=== PATIENT | female | born 1985 | race Caucasian/White ===

== ENCOUNTER 2016-05-27 05:40 | Day surgery (SDC) | payer MEDICAID, OTHER ==
[2016-05-25 12:30] LABS: APPEARANCE,URINE SLIGHTLY-CLOUDY; BILIRUBIN,URINE NEGATIVE (NEGATIVE); GLUCOSE, URINE NEGATIVE (NEGATIVE); KETONES,URINE NEGATIVE (NEGATIVE); LEUKOCYTE ESTERASE,URINE TRACE (NEGATIVE); NITRITE,URINE NEGATIVE (NEGATIVE); PROTEIN,URINE NEGATIVE (NEGATIVE); URINE SPECIFIC GRAVITY 1.016; UROBILINOGEN,URINE NEGATIVE mg/dL (<2.0)
[2016-05-25 12:32] LABS: HEMATOCRIT 31.5 % (36.0-47.0); HGB HCT DIFFERENCE -1.5; MEAN CORPUSCULAR HEMOGLOBIN 22.8 pg (27.0-33.4); MEAN CORPUSCULAR HGB CONC 31.8 g/dL (32.0-36.0); MEAN CORPUSCULAR VOLUME 72 fl (80-97); RED BLOOD COUNT 4.39 10^6/uL (3.72-5.28); RED CELL DISTRIBUTION WIDTH 18.1 % (11.5-14.0); WHITE BLOOD COUNT 4.3 10^3/uL (4.0-10.5)
[2016-05-25 12:55] LABS: ALANINE AMINOTRANSFERASE 28 U/L (9-52); ALBUMIN 4.1 g/dL (3.5-5.0); ALKALINE PHOSPHATASE 61 U/L (38-126); ANION GAP 9 (5-19); ASPARTATE AMINO TRANSFERASE 22 U/L (14-36); BILIRUBIN,TOTAL 0.6 mg/dL (0.2-1.3); BLOOD UREA NITROGEN 12 mg/dL (7-20); CARBON DIOXIDE 28 mmol/L (22-30); CHLORIDE 104 mmol/L (98-107); CREATININE RESULT 0.72 mg/dL (0.52-1.25); GLUCOSE 88 mg/dL (75-110); POTASSIUM 4.4 mmol/L (3.6-5.0); SODIUM 140.6 mmol/L (137-145); TOTAL PROTEIN 7.6 g/dL (6.3-8.2)
[~2016-05-27 05:40] MED LIST: CEFAZOLIN SODIUM 1 GM in DEXTROSE 5%-WATER 50 ML IV PRN; LACTATED RINGERS 1000 ML IV PRN; LIDOCAINE 0.5% INJ-PF (5 MG/ML) 50 ML SDV SUBCUT PRN
[2016-05-27] MEDS ORDERED: HYDROMORPHONE HCL INJ/PF 2 MG/ML AMPULE ONE ×2 (07:15)
[2016-05-27] MEDS ORDERED: FENTANYL CITRATE INJ/PF 250 MCG/5 ML AMPULE ONE (07:15)
[2016-05-27] MEDS ORDERED: MIDAZOLAM 2 MG/2 ML INJ ONE (07:16)
[2016-05-27] MEDS ORDERED: EPHEDRINE SULFATE INJ 50 MG/1 ML AMPULE ONE (07:16)
[2016-05-27] MEDS ORDERED: ACETAMINOPHEN 100 ML IV ONE ×2 (07:16→16:00)
[2016-05-27] MEDS ORDERED: PROPOFOL INJ 200 MG/20 ML VIAL IV ONE (07:16)
[2016-05-27] MEDS ORDERED: SCOPOLAMINE HYDROBROMIDE 1.5 MG PATCH.TD72 ONE (07:25)
[2016-05-27] MEDS ORDERED: DIPHENHYDRAMINE HCL 50 MG/ML VIAL IV PRN (08:39)
[2016-05-27] MEDS ORDERED: MEPERIDINE HCL/PF INJ 25 MG/1 ML DISP.SYRIN IV PRN (08:39)
[2016-05-27] MEDS ORDERED: PROMETHAZINE HCL INJ 25 MG/1 ML VIAL IV PRN (08:39)
[2016-05-27] MEDS ORDERED: FENTANYL CITRATE INJ/PF 100 MCG/2 ML AMPUL IV PRN ×3 (08:39)
[2016-05-27] MEDS ORDERED: BUPIVACAINE HCL 0.25 % INJ/PF (2.5 MG/1 ML) 30 ML VIAL ONE (09:51)
[2016-05-27] MEDS ORDERED: IBUPROFEN 800 MG TABLET PO PRN (10:51)
[2016-05-27] MEDS ORDERED: MORPHINE SULFATE 10 MG/ML INJ IV PRN (10:51)
--- NOTE | 2016-05-27 11:18 | OPERATIVE REPORT E ---
Operative Report NAME: BARBIE TORRES : 1985 AGE: 31Y DATE OF SURGERY: 05/27/2016 ROOM: PREOPERATIVE DIAGNOSES: 1. Abnormal uterine bleeding. 2. Endometriosis. 3. Chronic pelvic pain. 4. Anemia. POSTOPERATIVE DIAGNOSES: 1. Abnormal uterine bleeding. 2. Endometriosis. 3. Chronic pelvic pain. 4. Anemia. PROCEDURE: Robotic assisted total laparoscopic hysterectomy with bilateral salpingectomy, a right ovarian cystectomy, foreign body removal, and fulguration of endometriosis. SURGEON: ZEB VARGAS M.D. ANESTHESIA: Dr. Mckeon with general. ESTIMATED BLOOD LOSS: 150 mL. SPECIMENS REMOVED: Uterus, cervix, bilateral fallopian tubes, right ovarian chocolate cyst, and foreign body removal. FINDINGS: Approximately a 12-week sized uterus with small amounts of endometriosis in the posterior cul-de-sac just beneath the uterosacral ligaments concentrated on the right uterosacral ligament. Several surgical clips were noted from the patient's previous appendectomy that looked like a surgical stapler had been used. The left Filshie clip that had been placed at her tubal had been dislodged and was imbedded just lateral to her uterosacral ligament just beneath the cervix. The right ovary had a small hemorrhagic chocolate cyst on it. The left ovary was very normal in appearance and the fallopian tubes both were normal in appearance with the right one having an intact Filshie clip. The left, again the Filshie clip had fallen off but it looked like her tube could have been patent but I am not sure. PROCEDURE IN DETAIL: The patient was taken to the operating room and prepared and draped in a normal sterile fashion in the dorsal lithotomy position. Under sterile conditions, a Bates catheter was placed to gravity without difficulty. A sterile speculum was then placed into the vagina and the cervix was grasped and prepped with Betadine. It was grasped on the anterior lip of the cervix with a single tooth tenaculum. The cervix was then penetrated with a uterine sound and the uterus sounded to approximately 6 cm. The cervix was then dilated to accommodate a medium VCare uterine manipulator, which was placed without difficulty. Gloves were changed and attention was then turned to the upper portion of the case, where an umbilical skin incision was made following patient's previous laparoscopic surgery scar. This incision was expanded to accommodate a GelPOINT. The peritoneal cavity was entered sharply using a cutdown method without difficulty. The GelPOINT was then placed and the AirSeal and camera port were placed through the GelPOINT. The peritoneal cavity was then insufflated with approximately 2 L of CO2 gas and the robotic camera was introduced to survey the peritoneal cavity with the above findings noted. Under direct visualization, two 5 mm ports were placed approximately 10 cm on either side of the umbilicus to accommodate the robotic arms. The robot was then docked and the monopolar scissors and the vessel EndoSealer was placed. Beginning with the removal of the foreign objects, the Filshie clip that was noted imbedded just lateral to the uterosacral ligament was carefully teased out using the monopolar scissors and was removed through the assistance port without difficulty. We continue this method with removal of the other surgical ishan that were noted imbedded throughout the posterior cul-de-sac. The endometriosis that was noted was all fulgurated well with the monopolar scissors. The anterior cul-de-sac was inspected and found to be clean of any debris or endometriosis. The rest of the uterosacral ligaments were inspected carefully and found to have no further endometriosis on them other than the lesions that we had already fulgurated. Beginning with the right fallopian tube, I then removed the right fallopian tube using the monopolar scissors and transecting at the fundus using the EndoSealer. The hemorrhagic cyst was grasped and this was transected from the ovary and removed using the monopolar scissors. The ovary was then inspected and found to be hemostatic. The utero-ovarian ligament was then sealed with the vessel sealer and continued transection of the uterine arteries through the round ligament using the vessel sealer as well until we reached the level of the internal cervical os where the bladder flap was begun using the monopolar scissors. We then turned our attention to the left adnexa and using a similar fashion, the monopolar scissors were used to remove the left fallopian tube which again had an appearance of possibly being patent but this was not tested. The fallopian tube was transected from the uterine fundus using the vessel sealer. Continued to use the vessel sealer to transect the utero-ovarian ligament to drop the ovary away and the uterine arteries were then transected and sealed using the vessel sealer again down to the level of the internal cervical os where the bladder flap was completed using the monopolar scissors and the bladder flap was dissected well away from the cervix. The rest of the uterine arteries were completely sealed and transected until the VCare could be easily located through the mucosa. The colpotomy was then begun on the posterior side using the monopolar scissors and carried around circumferentially until the specimen was completely freed. The VCare was then removed and the uterus and cervix were removed through the vagina without difficulty. The instruments were then replaced with a [employer] Needle Supervisor [employer]ly[employer] Tinning and a ProGrasp. The V-Loc suture was introduced through the accessory port and this was used to close the vaginal cuff without difficulty. The ureters were inspected throughout the case and there were no signs of hydroureter or lack of peristalsing during case at all. Once the vaginal cuff was closed, we noticed that there was a small amount of oozing, so we reintroduced the monopolar scissors and used this to coagulate the areas that were bleeding slightly until hemostasis was obtained. The ureters were then once again reinspected and found to be peristalsing normally with no signs of hydroureter. The robot was undocked and the instruments were removed under direct visualization. The GelPOINT was removed. The fascia was located underneath the subcutaneous layer and it was closed in a running fashion using 0 Vicryl. The subcutaneous layer was then closed with plain catgut and then all 3 skin sites were closed using 4-0 Vicryl. Patient tolerated the procedure well. Sponge, lap, and needle counts were correct x2. The patient's incisions were injected with plain Marcaine for further pain control. The patient tolerated the procedure well and she was taken to PACU in stable condition. DICTATING PHYSICIAN: ZEB VARGAS M.D. [id number] PHY#: [id number] ID: [id number] JOB#: [id number] ACCT: [id number] cc:ZEB VARGAS M.D. >
[2016-05-27] MEDS ORDERED: ONDANSETRON HCL INJ/PF 4 MG/2 ML SDV IV ONE (12:10)
[2016-05-27] MEDS ORDERED: ONDANSETRON HCL INJ/PF 4 MG/2 ML SDV ONE ×2 (12:10→12:39)
[2016-05-27] MEDS ORDERED: KETOROLAC TROMETHAMINE INJ/PF 30 MG/1 ML SDV ONE (12:11)
[2016-05-27] MEDS ORDERED: GLYCOPYRROLATE INJ 0.4 MG/2 ML VIAL ONE (12:39)
[2016-05-27] MEDS ORDERED: LIDOCAINE 2% INJ-PF (20 MG/ML) 10 ML AMPUL ONE (12:39)
[2016-05-27] MEDS ORDERED: DEXAMETHASONE SOD PHOSPHATE INJ 4 MG/1 ML VIAL ONE (12:39)
[2016-05-27] MEDS ORDERED: ROCURONIUM BROMIDE INJ 50 MG/5 ML VIAL IV ONE (12:39)
[2016-05-27] MEDS ORDERED: NEOSTIGMINE METHYLSULFATE 10 MG/10 ML VIAL ONE (12:39)
[2016-05-27] MEDS ORDERED: KETOROLAC TROMETHAMINE INJ/PF 30 MG/1 ML SDV IV SCH (14:00)
[2016-05-27] MEDS: ONDANSETRON 4 MG TAB.RAPDIS PO PRN (15:19)
[2016-05-27] MEDS ORDERED: RINGERS SOLUTION,LACTATED 1,000 ML IV ONE (17:45)
[2016-05-27] MEDS: PROMETHAZINE HCL INJ 25 MG/1 ML VIAL IV PRN (17:47)
[2016-05-27] MEDS: FAMOTIDINE INJ/PF 20 MG/2 ML SDV IV SCH (18:06)
[2016-05-27] MEDS: RINGERS SOLUTION,LACTATED 1,000 ML IV PRN (19:35)
[2016-05-27] MEDS: KETOROLAC TROMETHAMINE INJ/PF 30 MG/1 ML SDV IV SCH (20:49)
[2016-05-27] MEDS: OXYCODONE-ACETAMINOPHEN 5-325 MG TABLET PO PRN (21:57)
[2016-05-28] MEDS: KETOROLAC TROMETHAMINE INJ/PF 30 MG/1 ML SDV IV SCH ×3 (04:07→21:13)
[2016-05-28] MEDS: ONDANSETRON 4 MG TAB.RAPDIS PO PRN (06:39)
[2016-05-28] MEDS: OXYCODONE-ACETAMINOPHEN 5-325 MG TABLET PO PRN ×3 (06:40→22:45)
[2016-05-28] MEDS: FAMOTIDINE INJ/PF 20 MG/2 ML SDV IV SCH ×2 (06:43→17:44)
[2016-05-28 07:09] LABS: HGB HCT DIFFERENCE -1.2; MEAN CORPUSCULAR HEMOGLOBIN 22.8 pg (27.0-33.4); MEAN CORPUSCULAR HGB CONC 31.6 g/dL (32.0-36.0); MEAN CORPUSCULAR VOLUME 72 fl (80-97); RED BLOOD COUNT 3.32 10^6/uL (3.72-5.28); RED CELL DISTRIBUTION WIDTH 18.1 % (11.5-14.0)
[2016-05-28 07:10] LABS: WHITE BLOOD COUNT 9.1 10^3/uL (4.0-10.5)
[2016-05-28 07:13] LABS: HEMOGLOBIN 7.6 g/dL (12.0-15.5)
[2016-05-28] MEDS: RINGERS SOLUTION,LACTATED 1,000 ML IV PRN (08:16)
--- NOTE | 2016-05-28 11:52 | PDOC PROGRESS REPORT ---
Subjective Progress Note for:: 05/28/16 Subjective:: s/p RATLH w/ b/l salpingectomy and Right ovarian cystectomy. POD #1. Post operative course remarkable for n/v. vomiting improving but did vomit once this AM. no flatus as yet. voiding normally. referred shoulder pain resolving. still c/o severe tenderness in right abdomen just lateral to umbilicus. Physical Exam - Physical Exam Vital Signs: Temp Pulse Resp BP Pulse Ox 98.0 F 79 16 111/59 L 97 05/28/16 08:22 05/28/16 08:22 05/28/16 08:22 05/28/16 08:22 05/28/16 08:22 Intake & Output 05/27/16 05/28/16 05/29/16 06:59 06:59 06:59 Intake Total 0 3025 1500 Output Total 1300 Balance 0 1725 1500 General appearance: PRESENT: no acute distress, cooperative Head exam: PRESENT: atraumatic GI/Abdominal exam: PRESENT: normal bowel sounds, soft, tenderness - just lateral to umbilicus on the right. crepitous palpated yesterday now gone. Result Laboratory Results: 05/28/16 06:30 05/25/16 11:04 05/28/16 06:30 WBC 9.1 D RBC 3.32 L Hgb 7.6 L D Hct 24.0 L MCV 72 L MCH 22.8 L MCHC 31.6 L RDW 18.1 H Plt Count 238 Assessment & Plan - Diagnosis (1) Abnormal uterine bleeding Is this a current diagnosis for this admission?: Yes (2) Anemia Qualifiers: Anemia type: iron deficiency Iron deficiency anemia type: chronic blood loss Qualified Code(s): D50.0 - Iron deficiency anemia secondary to blood loss (chronic) Is this a current diagnosis for this admission?: Yes (3) Endometriosis Is this a current diagnosis for this admission?: Yes (4) Ovarian cyst Qualifiers: Laterality: right Qualified Code(s): N83.201 - Unspecified ovarian cyst, right side Is this a current diagnosis for this admission?: Yes (5) Pelvic pain Is this a current diagnosis for this admission?: Yes - Time Time Spent with patient: Less than 15 minutes Critical Time spent with patient: Less than 15 minutes Medications reviewed and adjusted accordingly: Yes Anticipated discharge: Home Within: within 24 hours Disposition: will obseve overnight as pain is significant. if remains stable with no worsening symptoms will d/c tomorrow. - Inpatient Certification Based on my medical assessment, after consideration of the patient's comorbidities, presenting symptoms, or acuity I expect that the services needed warrant INPATIENT care.: Yes I certify that my determination is in accordance with my understanding of Medicare's requirements for reasonable and necessary INPATIENT services [42 CFR 412.3e].: Yes Medical Necessity: Need Close Monitoring Due to Risk of Patient Decompensation - monitor for post op sequela - Plan Summary Plan Summary: discharge tomorrow if remains stable add unasyn for prophylaxis in case of small post surgical hematoma if sxs worsen or do not improve, consider CT of abdomen to assess for bleeding/ hematoma.
[2016-05-28] MEDS ORDERED: AMPICILLIN SOD/SULBACTAM 3 GM VIAL IV SCH (12:00)
[2016-05-28] MEDS: AMPICILLIN SODIUM/SULBACTAM NA 3 GM in NORMAL SALINE 100 ML IV SCH ×2 (14:01→22:16)
[2016-05-28] MEDS ORDERED: BISACODYL 10 MG SUPP.RECT PR ONE (21:00)
[2016-05-28] MEDS: SIMETHICONE 80 MG TAB.CHEW PO PRN (21:13)
[2016-05-28] MEDS: PROMETHAZINE HCL INJ 25 MG/1 ML VIAL IV PRN (22:25)
[2016-05-29] MEDS: KETOROLAC TROMETHAMINE INJ/PF 30 MG/1 ML SDV IV SCH ×2 (03:30→11:14)
[2016-05-29] MEDS: FAMOTIDINE INJ/PF 20 MG/2 ML SDV IV SCH (08:11)
[2016-05-29] MEDS: AMPICILLIN SODIUM/SULBACTAM NA 3 GM in NORMAL SALINE 100 ML IV SCH (08:12)
[2016-05-29 08:18] LABS: ALANINE AMINOTRANSFERASE 20 U/L (9-52); ALBUMIN 3.1 g/dL (3.5-5.0); ALKALINE PHOSPHATASE 44 U/L (38-126); ANION GAP 6 (5-19); ASPARTATE AMINO TRANSFERASE 19 U/L (14-36); BILIRUBIN,TOTAL 0.2 mg/dL (0.2-1.3); BLOOD UREA NITROGEN 10 mg/dL (7-20); CALCIUM 8.4 mg/dL (8.4-10.2); CARBON DIOXIDE 31 mmol/L (22-30); CHLORIDE 105 mmol/L (98-107); CREATININE RESULT 0.77 mg/dL (0.52-1.25); GLUCOSE 95 mg/dL (75-110); POTASSIUM 3.9 mmol/L (3.6-5.0); SODIUM 142.4 mmol/L (137-145); TOTAL PROTEIN 5.5 g/dL (6.3-8.2)
[2016-05-29 08:20] LABS: ABSOLUTE EOSINOPHILS # (AUTO) 0.1 10^3/uL (0.0-0.6); ABSOLUTE LYMPHOCYTES (AUTO) 1.6 10^3/uL (0.5-4.7); ABSOLUTE MONOCYTES (AUTO) 0.3 10^3/uL (0.1-1.4); ABSOLUTE NEUT (AUTO) 3.7 10^3/uL (1.7-8.2); BASOPHILS % (AUTO) 0.6 % (0-2); EOSINOPHILS % (AUTO) 2.3 % (0-6); HGB HCT DIFFERENCE -1.1; LYMPHOCYTES % (AUTO) 28.3 % (13-45); MEAN CORPUSCULAR HEMOGLOBIN 22.9 pg (27.0-33.4); MEAN CORPUSCULAR HGB CONC 31.6 g/dL (32.0-36.0); MEAN CORPUSCULAR VOLUME 73 fl (80-97); MONOCYTES % (AUTO) 5.7 % (3-13); RED BLOOD COUNT 3.18 10^6/uL (3.72-5.28); RED CELL DISTRIBUTION WIDTH 18.1 % (11.5-14.0); SEGMENTED NEUTROPHILS % (AUTO) 63.1 % (42-78); WHITE BLOOD COUNT 5.8 10^3/uL (4.0-10.5)
[2016-05-29 08:23] LABS: HEMOGLOBIN 7.3 g/dL (12.0-15.5)
[2016-05-29] MEDS: OXYCODONE-ACETAMINOPHEN 5-325 MG TABLET PO PRN (08:26)
--- NOTE | 2016-05-29 09:02 | PDOC DISCHARGE SUMMARY ---
General - Admit/Disc Date/PCP Admission Date/Primary Care Provider: Darrell Crump MD Discharge Date: 05/29/16 - Discharge Diagnosis (1) Abnormal uterine bleeding Is this a current diagnosis for this admission?: Yes (2) Anemia Is this a current diagnosis for this admission?: Yes (3) Endometriosis Is this a current diagnosis for this admission?: Yes (4) Ovarian cyst Is this a current diagnosis for this admission?: Yes (5) Pelvic pain Is this a current diagnosis for this admission?: Yes - Additional Information Resuscitation Status: Full Code Home Medications: Lorazepam [Ativan 0.5 mg Tablet] 0.5 mg PO ASDIR PRN 12/03/15 Medroxyprogesterone Acetate [Provera] 5 mg PO DAILY 05/25/16 History of Present Illness History of Present Illness: BARBIE TORRES is a 31 year old female Hospital Course Hospital Course: labs stable. no evidence of hemorrage. white count decreased and creatinine stable. pt's c/o pain c/w typical post operative course Physical Exam - Physical Exam Vital Signs: Temp Pulse Resp BP Pulse Ox 98.2 F 71 16 119/66 99 05/29/16 08:00 05/29/16 08:00 05/29/16 08:00 05/29/16 08:00 05/29/16 08:00 Intake & Output 05/28/16 05/29/16 05/30/16 06:59 06:59 06:59 Intake Total 3025 2910 Output Total 1300 352 Balance 1725 2558 Result Laboratory Results: 05/29/16 07:11 05/29/16 07:11 05/29/16 05/29/16 07:11 07:11 WBC 5.8 RBC 3.18 L Hgb 7.3 L Hct 23.0 L MCV 73 L MCH 22.9 L MCHC 31.6 L RDW 18.1 H Plt Count 233 Seg Neutrophils % 63.1 Lymphocytes % 28.3 Monocytes % 5.7 Eosinophils % 2.3 Basophils % 0.6 Absolute Neutrophils 3.7 Absolute Lymphocytes 1.6 Absolute Monocytes 0.3 Absolute Eosinophils 0.1 Absolute Basophils 0.0 Sodium 142.4 Potassium 3.9 Chloride 105 Carbon Dioxide 31 H Anion Gap 6 BUN 10 Creatinine 0.77 Est GFR ( Amer) > 60 Est GFR (Non-Af Amer) > 60 Glucose 95 Calcium 8.4 Total Bilirubin 0.2 AST 19 ALT 20 Alkaline Phosphatase 44 Total Protein 5.5 L Albumin 3.1 L Plan Discharge Plan: discharge home. keep follow up appt at [facility] with Dr Gonzales as scheduled
[2016-05-29] MEDS: SIMETHICONE 80 MG TAB.CHEW PO PRN (09:22)
[2016-05-29 11:46] VITALS: BP 118/68
[2016-05-29] MEDS ORDERED: ACETAMINOPHEN 100 ML IV ONE (13:00)
== END 2016-05-29 14:47 | disposition home or self-care (01) ==
LOC: OROUT 05:40 → 2N 12:52 → OROUT 05-29 14:47
PROVIDERS: ATTEND Obstetrics & Gynecology
PROC: 0UTC4ZZ Resection of Cervix, Percutaneous Endoscopic Approach (ICD-10-PCS; 2016-05-27)
PROC: 0UT74ZZ Resection of Bilateral Fallopian Tubes, Percutaneous Endoscopic Approach (ICD-10-PCS; 2016-05-27)
PROC: 8E0W4CZ Robotic Assisted Procedure of Trunk Region, Percutaneous Endoscopic Approach (ICD-10-PCS; 2016-05-27)
PROC: 0UB04ZZ Excision of Right Ovary, Percutaneous Endoscopic Approach (ICD-10-PCS; 2016-05-27)
PROC: 0UC Female Reproductive System, Extirpation (ICD-10-PCS; 2016-05-27)
PROC: 0UT94ZZ Resection of Uterus, Percutaneous Endoscopic Approach (ICD-10-PCS; principal; 2016-05-27 07:30)
DX: N87.0 Mild cervical dysplasia (principal); N80.0 Endometriosis of uterus; N83.8 Other noninflammatory disorders of ovary, fallopian tube and broad ligament; D64.9 Anemia, unspecified; G89.29 Other chronic pain; R10.2 Pelvic and perineal pain; N80.1 Endometriosis of ovary; N80.3 Endometriosis of pelvic peritoneum; N93.9 Abnormal uterine and vaginal bleeding, unspecified
CPT/HCPCS: 58571; 58662; 58999; S2900; 36415; 74176; 80053; 81001; 81025; 85025; 85027; 86850; 86900; 86901; 88307; 944; J0131; J0295; J0690; J1100; J1170; J1885; J2250; J2405; J2550; J2704; J3010; J3490; J7120; S0028; S0119

== ENCOUNTER 2016-09-10 21:32 | Emergency (ER) | payer OTHER, MEDICAID ==
[2016-09-10 23:03] LABS: ABSOLUTE EOSINOPHILS # (AUTO) 0.1 10^3/uL (0.0-0.6); ABSOLUTE LYMPHOCYTES (AUTO) 1.3 10^3/uL (0.5-4.7); ABSOLUTE MONOCYTES (AUTO) 0.6 10^3/uL (0.1-1.4); ABSOLUTE NEUT (AUTO) 8.4 10^3/uL (1.7-8.2); BASOPHILS % (AUTO) 0.2 % (0-2); EOSINOPHILS % (AUTO) 1.4 % (0-6); HEMATOCRIT 33.4 % (36.0-47.0); HEMOGLOBIN 10.3 g/dL (12.0-15.5); HGB HCT DIFFERENCE -2.5; LYMPHOCYTES % (AUTO) 12.3 % (13-45); MEAN CORPUSCULAR HEMOGLOBIN 21.6 pg (27.0-33.4); MEAN CORPUSCULAR VOLUME 70 fl (80-97); MONOCYTES % (AUTO) 5.5 % (3-13); RED BLOOD COUNT 4.78 10^6/uL (3.72-5.28); RED CELL DISTRIBUTION WIDTH 19.5 % (11.5-14.0); SEGMENTED NEUTROPHILS % (AUTO) 80.6 % (42-78); WHITE BLOOD COUNT 10.4 10^3/uL (4.0-10.5)
[2016-09-10 23:10] LABS: APPEARANCE,URINE CLEAR; BILIRUBIN,URINE NEGATIVE (NEGATIVE); GLUCOSE, URINE NEGATIVE (NEGATIVE); KETONES,URINE NEGATIVE (NEGATIVE); LEUKOCYTE ESTERASE,URINE SMALL (NEGATIVE); NITRITE,URINE NEGATIVE (NEGATIVE); PROTEIN,URINE NEGATIVE (NEGATIVE); URINE SPECIFIC GRAVITY 1.006; UROBILINOGEN,URINE NEGATIVE mg/dL (<2.0)
[2016-09-10 23:18] LABS: ALANINE AMINOTRANSFERASE 28 U/L (9-52); ALBUMIN 4.2 g/dL (3.5-5.0); ALKALINE PHOSPHATASE 70 U/L (38-126); ANION GAP 13 (5-19); ASPARTATE AMINO TRANSFERASE 18 U/L (14-36); BILIRUBIN,DIRECT 0.3 mg/dL (0.0-0.4); BILIRUBIN,TOTAL 0.4 mg/dL (0.2-1.3); BLOOD UREA NITROGEN 8 mg/dL (7-20); CALCIUM 9.1 mg/dL (8.4-10.2); CARBON DIOXIDE 26 mmol/L (22-30); CHLORIDE 105 mmol/L (98-107); CREATINE KINASE 68 U/L (30-135); CREATININE RESULT 0.74 mg/dL (0.52-1.25); GLUCOSE 107 mg/dL (75-110); POTASSIUM 3.6 mmol/L (3.6-5.0); TOTAL PROTEIN 7.6 g/dL (6.3-8.2)
[2016-09-10 23:29] LABS: CREATINE KINASE MB < 0.22 ng/mL (<4.55); TROPONIN I < 0.012 ng/mL
--- NOTE | 2016-09-11 01:33 | RADIOLOGY REPORT (SQ) ---
EXAM DESCRIPTION: CHEST PA/LAT COMPLETED DATE/TIME: 09/11/2016 1:14 am REASON FOR STUDY: chest pain COMPARISON: Chest x-ray 03/13/2009. EXAM PARAMETERS: NUMBER OF VIEWS: two views TECHNIQUE: Digital Frontal and Lateral radiographic views of the chest acquired. RADIATION DOSE: NA LIMITATIONS: none FINDINGS: LUNGS AND PLEURA: No consolidation, pneumothorax or pleural effusion. MEDIASTINUM AND HILAR STRUCTURES: No masses or contour abnormalities. HEART AND VASCULAR STRUCTURES: Heart normal size. No evidence for failure. BONES: No acute findings. HARDWARE: None in the chest. IMPRESSION: No acute radiographic finding in the chest. TECHNICAL DOCUMENTATION: JOB ID: [id number] [employer]- All Rights Reserved
[2016-09-11] MEDS ORDERED: ACETAMINOPHEN 325 MG TABLET PO ONE (02:23)
[2016-09-11] MEDS ORDERED: KETOROLAC TROMETHAMINE 60 MG/2 ML SDV IM ONE (06:46)
[2016-09-11] MEDS ORDERED: LIDOCAINE 5% (700 MG) TRANSDERMAL ADH..PATCH TP ONE (06:46)
--- NOTE | 2016-09-11 07:15 | ER Document Report ---
ED General - General Chief Complaint: Chest Pain Stated Complaint: CHEST PAIN Time Seen by Provider: 09/11/16 06:04 TRAVEL OUTSIDE OF THE [place] IN LAST 30 DAYS: No - HPI Patient complains to provider of: Chest pain Notes: Patient coming in for multiple complaints. Patient states having chest pain ongoing for 24 hours reproducible with movement. Shortness of breath and left- sided neck pain. Patient denies any recent travel denies fever chills nausea vomiting denies any recent antibiotics. Patient denies any past medical history. Upon my evaluation patient is sleeping comfortably. - Related Data Allergies/Adverse Reactions: No Known Allergies Allergy (Verified 09/10/16 22:26) Past Medical History - Social History Smoking Status: Unknown if Ever Smoked Family History: Reviewed & Not Pertinent - Past Medical History Cardiac Medical History: Pulmonary Medical History: Neurological Medical History: Denies: Hx Cerebrovascular Accident, Hx Seizures Renal/ Medical History: Reports: Hx Ovarian Cysts. Denies: Hx End Stage Renal Disease, Hx Kidney Stones, Hx Peritoneal Dialysis, Hx Pelvic Inflammatory Disease Malignancy Medical History: Denies: Hx Breast Cancer, Hx Cervical Cancer, Hx Leukemia, Hx Ovarian Cancer GI Medical History: Reports: Hx Crohn's Disease. Denies: Hx Gastroesophageal Reflux Disease, Hx Hiatal Hernia, Hx Irritable Bowel, Hx Liver Failure, Hx Ulcer Musculoskeltal Medical History: Denies Hx Arthritis, Denies Hx Fibromyalgia, Denies Hx Multiple Sclerosis, Denies Hx Muscular Dystrophy Psychiatric Medical History: Reports: Hx Depression, Hx Post Traumatic Stress Disorder Denies: Hx Bipolar Disorder, Hx Dementia, Hx Schizophrenia Traumatic Medical History: Reports: Hx Fractures - HX BROKEN RIGHT KNUCKLE Infectious Medical History: Denies: Hx HIV Past Surgical History: Reports: Hx Appendectomy, Hx Breast Surgery - AUGMENTATION, Hx Tubal Ligation. Denies: Hx Bowel Surgery - COLONOSCOPY, HX CROHNS, Hx Section, Hx Cholecystectomy, Hx Colostomy, Hx Coronary Artery Bypass Graft, Hx Gastric Bypass Surgery, Hx Herniorrhaphy, Hx Hysterectomy, Hx Mastectomy, Hx Pacemaker, Hx Tonsillectomy - Immunizations Hx Diphtheria, Pertussis, Tetanus Vaccination: Yes Review of Systems - Review of Systems Constitutional: No symptoms reported EENT: Other - Chest pain neck pain shortness of breath Cardiovascular: No symptoms reported Respiratory: No symptoms reported Gastrointestinal: No symptoms reported Genitourinary: No symptoms reported Female Genitourinary: No symptoms reported Musculoskeletal: No symptoms reported Skin: No symptoms reported Hematologic/Lymphatic: No symptoms reported Neurological/Psychological: No symptoms reported -: Yes All other systems reviewed and negative Physical Exam - Vital signs Vitals: Resp BP 17 118/80 09/11/16 01:09 09/11/16 01:09 Interpretation: Normal - General General appearance: Appears well, Alert - HEENT Head: Normocephalic, Atraumatic Eyes: Normal Pupils: PERRL Neck: Other - Paraspinal neck pain to palpation on the left - Respiratory Respiratory status: No respiratory distress Chest status: Tender - Tenderness to the palpation of the left upper chest Breath sounds: Normal Chest palpation: Normal - Cardiovascular Rhythm: Regular Heart sounds: Normal auscultation Murmur: No - Abdominal Inspection: Normal Distension: No distension Bowel sounds: Normal Tenderness: Nontender Organomegaly: No organomegaly - Back Back: Normal, Nontender - Extremities General upper extremity: Normal inspection, Nontender, Normal color, Normal ROM , Normal temperature General lower extremity: Normal inspection, Nontender, Normal color, Normal ROM , Normal temperature, Normal weight bearing. No: Samantha's sign - Neurological Neuro grossly intact: Yes Cognition: Normal Orientation: AAOx4 Jayne Coma Scale Eye Opening: Spontaneous Radisson Coma Scale Verbal: Oriented Jayne Coma Scale Motor: Obeys Commands Jayne Coma Scale Total: 15 Speech: Normal Motor strength normal: LUE, RUE, LLE, RLE Sensory: Normal - Psychological Associated symptoms: Normal affect, Normal mood - Skin Skin Temperature: Warm Skin Moisture: Dry Skin Color: Normal Course - Re-evaluation Re-evalutation: 09/11/16 14:23 The patient has atypical chest pain as the patient's chest pain is not suggestive of pulmonary embolus, cardiac ischemia, aortic dissection, or other serious etiology. Given the extremely low risk of these diagnoses further testing and evaluation for these possibilities does not appear to be indicated at this time. The patient has been instructed to return if the symptoms worsen or change in any way. 09/11/16 14:24 Concerning pathology the patient's neck pain. Patient will be discharged home. More likely muscle skeletal. - Vital Signs Vital signs: Temp Pulse Resp BP Pulse Ox 98.4 F 13 109/80 99 09/11/16 03:44 09/11/16 07:22 09/11/16 07:22 09/11/16 07:22 - Laboratory Result Diagrams: 09/10/16 22:40 09/10/16 22:40 Laboratory results interpreted by me: 09/10/16 09/10/16 22:40 22:40 Hgb 10.3 L Hct 33.4 L MCV 70 L MCH 21.6 L MCHC 31.0 L RDW 19.5 H Seg Neutrophils % 80.6 H Lymphocytes % 12.3 L Absolute Neutrophils 8.4 H Ur Leukocyte Esterase SMALL H Discharge - Discharge Clinical Impression: Chest wall pain, Neck pain Condition: Good Disposition: HOME, SELF-CARE Instructions: Anti-Inflammatory Medication ([facility]), Chest Wall Pain ([facility]), Myalagia (Muscle Pain) ([facility]) Additional Instructions: Your workup today reveals no signs of significant pathology her chest x-ray shows no signs of infection her lab work shows no signs of heart attack or blood clots within her long. More likely you are experiencing muscle pain possibly from early viral infection that her temperature was 99.0 upon arrival here. I recommend continue to take Tylenol Motrin for your pain control. He may wear the patch given to you in the ER for the next 24 hours I will provide you a prescription however these patches are expensive I would recommend that if he cannot afford the patches that she ask her pharmacist about a over-the- counter alternative such as Aspercreme Prescriptions: Lidocaine [Lidoderm 5% (700 mg) Transdermal Patch] 1 patch TP DAILY #10 adh..patch Forms: Return to Work Referrals: FREDRICK ZUNIGA MD [Primary Care Provider] - Follow up in 1 week
[2016-09-11 07:29] VITALS: BP 109/80
--- NOTE | 2016-09-11 09:42 | EKG REPORT ---
SEVERITY:- OTHERWISE NORMAL ECG - SINUS TACHYCARDIA : Confirmed by: Mahesh Nuñez 11-Sep-2016 09:42:22
== END 2016-09-11 07:39 | disposition home or self-care (01) ==
LOC: ER 21:32
DX: R07.89 Other chest pain (principal); M54.2 Cervicalgia; R06.02 Shortness of breath
CPT/HCPCS: 93005; 99285; 96372; 36415; 82553; 82550; 85025; 85610; 80053; 81001; 84484; 85379; 71020; 93010; J1885